=== PATIENT | female | born 1985 | race African-American/Black ===

== ENCOUNTER 2018-02-13 15:11 | Emergency (ER) | payer BC, SELFPAY ==
[2018-02-13 15:50] LABS: Urine Blood 2+ (NEG); Urine Glucose NEGATIVE (NEG); Urine Protein NEGATIVE (NEG); Urine Specific Gravity 1.025 (1.005-1.030); Urine pH 6.5 (5.0-7.0)
--- NOTE | 2018-02-13 16:25 | RAD REPORT ---
EXAM DESCRIPTION: CT - Stone Protocol - 02/13/2018 4:13 pm CLINICAL HISTORY: Abdominal pain. Right flank pain COMPARISON: None. TECHNIQUE: Computed axial tomography of the abdomen pelvis was obtained without oral or IV contrast. Lack of IV and oral contrast limits evaluation of solid organs, bowel, and vessels. Coronal reformat deepa images were obtained and reviewed. All CT scans are performed using dose optimization technique as appropriate and may include automated exposure control or mA/KV adjustment according to patient size. FINDINGS: A renal calculus is not seen. An ureteral calculus is not noted. A bladder calculus is not present. The liver, spleen, pancreas and adrenals appear grossly normal There is no evidence of diverticulitis. The appendix appears normal A tiny umbilical hernia is present. An IUD is in good position. An adnexal mass is not seen IMPRESSION: Negative for a genitourinary calculus
[2018-02-13 16:35] LABS: Absolute Lymphocytes (CBC) 4.1 K/uL (0.7-4.9); Absolute Monocytes 0.7 K/uL (0.1-1.3); Absolute Neutrophil 5.4 K/uL (1.8-8.0); Basophils % 0.2 % (0-1.3); Eosinophils % 2.5 % (0-4.4); Hematocrit 38.5 % (36.0-45.0); Lymphocytes % 39.2 % (15.3-44.8); MCH 24.1 pg (27.0-35.0); MCV 74.9 fL (80-100); MPV 8.7 fL (7.6-11.3); Monocytes % 6.5 % (3.3-12.3); RBC Red Blood Cell Count 5.14 M/uL (3.86-4.86)
[2018-02-13 16:49] LABS: ALT/SGPT 34 U/L (12-78); AST/SGOT 21 U/L (15-37); Albumin 3.4 g/dL (3.4-5.0); Alkaline Phosphatase 74 U/L (45-117); BUN Blood Urea Nitrogen 14 mg/dL (7-18); Bicarbonate 27 mmol/L (21-32); Bilirubin Direct < 0.1 mg/dL (0-0.2); Bilirubin Total 0.2 mg/dL (0.2-1.0); Glucose Level 100 mg/dL (74-106); Potassium 3.6 mmol/L (3.5-5.1); Protein, Total 7.5 g/dL (6.4-8.2); Sodium Level 141 mmol/L (136-145)
--- NOTE | 2018-02-13 16:58 | ER ---
Nurse's Notes [facility] Name: Asha Vickers Age: 32 yrs Sex: Female : 1985 Arrival Date: 02/13/2018 Time: 15:16 Bed 23 Private MD: Diagnosis: Muscle spasm Presentation: 02/13 15:16 Presenting complaint: Patient states: right flank pain that began Sunday and got worse aa5 last night. Pt denies N/V/D, denies urinary symptoms. Transition of care: patient was not received from another setting of care. Onset of symptoms was February 2018. Risk Assessment: Do you want to hurt yourself or someone else? Patient reports no desire to harm self or others. Initial Sepsis Screen: Does the patient meet any 2 criteria? No. Patient's initial sepsis screen is negative. Does the patient have a suspected source of infection? No. Patient's initial sepsis screen is negative. Care prior to arrival: None. 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 - Social history:: Smoking status: Patient/guardian denies using tobacco, Patient uses alcohol, occasionally. - Ebola Screening: : No symptoms or risks identified at this time. Screenin:25 Abuse screen: Denies threats or abuse. Nutritional screening: No deficits noted. tl3 Tuberculosis screening: No symptoms or risk factors identified. Fall Risk None identified. Assessment: 15:23 General: Appears in no apparent distress. comfortable, well groomed, well developed, tl3 well nourished, Behavior is calm, cooperative, appropriate for age. Neuro: Level of Consciousness is awake, alert, obeys commands, Oriented to person, place, time, situation, Appropriate for age. Cardiovascular: Patient's skin is warm and dry. Respiratory: Airway is patent Respiratory effort is even, unlabored, Respiratory pattern is regular, symmetrical. GI: No signs and/or symptoms were reported involving the gastrointestinal system. : No signs and/or symptoms were reported regarding the genitourinary system. Urine is clear. EENT: No signs and/or symptoms were reported regarding the EENT system. Derm: No signs and/or symptoms reported regarding the dermatologic system. Musculoskeletal: Reports pain in left low back and left mid back. 15:26 Pain: Complains of pain in right flank. tl3 17:05 Reassessment: Patient appears in no apparent distress at this time. No changes from tl3 previously documented assessment. Patient and/or family updated on plan of care and expected duration. Pain level reassessed. Patient is alert, oriented x 3, equal unlabored respirations, skin warm/dry/pink. Vital Signs: 15:20 BP 136 / 76; Pulse 78; Resp 18 S; Temp 98.2(TE); Pulse Ox 100% on R/A; Weight 132.9 kg aa5 (R); Height 5 ft. 4 in. (162.56 cm) (R); Pain 7/10; 15:20 Body Mass Index 50.29 (132.90 kg, 162.56 cm) aa5 ED Course: 15:16 Patient arrived in ED. jr8 15:16 Mike Carlton PA is PHCP. jr8 15:16 Manuel Ryder MD is Attending Physician. jr8 15:17 Triage completed. aa5 15:17 Arm band placed on. aa5 15:21 Mike Carlton PA is PHCP. jr8 15:21 Manuel Ryder MD is Attending Physician. jr8 15:23 Mercedes Worthington, SARA is Primary Nurse. tl3 15:25 Patient has correct armband on for positive identification. Pulse ox on. NIBP on. Warm tl3 blanket given. 15:25 No provider procedures requiring assistance completed. tl3 16:[address] sj 16:11 CT completed. Patient tolerated procedure well. Patient moved back from CT. mw3 16:13 CT Stone Protocol In Process Unspecified. EDMS 16:13 Initial lab(s) drawn, by me, sent to lab. Urine collected: clean catch specimen, clear. tl3 Inserted saline lock: 20 gauge in right forearm, using aseptic technique. Blood collected. 17:05 IV discontinued, intact, bleeding controlled, No redness/swelling at site. Pressure tl3 dressing applied. Administered Medications: 17:02 Drug: TORadol 30 mg Route: IVP; Site: right forearm; iw 17:04 Follow up: Response: Medication administered at discharge. tl3 Outcome: 16:57 Discharge ordered by MD. huizar 17:05 Discharged to home ambulatory. iw 17:05 Condition: good 17:05 Discharge instructions given to patient, Instructed on discharge instructions, follow up and referral plans. medication usage, Demonstrated understanding of instructions, follow-up care, medications, Prescriptions given X 3. 17:05 Discharged to tl3 17:06 Patient left the ED. iw Signatures: Dispatcher [employer] EDAshleigh Bush Irene, RN RN iw Keesha Coello RN RN aa5 Mike Carlton PA PA jr8 Mercedes Worthington RN RN tl3 Geetha Velazquez mw3 Corrections: (The following items were deleted from the chart) 15:22 15:20 Pulse 78bpm; Resp 18bpm; Spontaneous; Pulse Ox 100% RA; Temp 98.2F Temporal; aa5 aa5
--- NOTE | 2018-02-13 16:58 | EDPHYS ---
Physician Documentation [facility] Name: Asha Vickers Age: 32 yrs Sex: Female : 1985 Arrival Date: 02/13/2018 Time: 15:16 Bed 23 Private MD: ED Physician Manuel Ryder HPI: 02/13 15:52 This 32 yrs old Black Female presents to ER via Ambulatory with complaints of right jr8 sided pain. 15:52 Patient stated that she started to have pain yesterday. Worse throughout the night. jr8 While at work became so bad that she had to stop for the day. Worse with deep breath and movement . Severity of symptoms: At their worst the symptoms were moderate in the emergency department the symptoms are unchanged. The patient has not experienced similar symptoms in the past. The patient has not recently seen a physician. Denies trauma . 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 - Social history:: Smoking status: Patient/guardian denies using tobacco, Patient uses alcohol, occasionally. - Ebola Screening: : No symptoms or risks identified at this time. ROS: 15:52 Eyes: Negative for injury, pain, redness, and discharge, ENT: Negative for injury, jr8 pain, and discharge, Neck: Negative for injury, pain, and swelling, Cardiovascular: Negative for chest pain, palpitations, and edema, Respiratory: Negative for shortness of breath, cough, wheezing, and pleuritic chest pain, Abdomen/GI: Negative for abdominal pain, nausea, vomiting, diarrhea, and constipation, MS/Extremity: Negative for injury and deformity, Skin: Negative for injury, rash, and discoloration, Neuro: Negative for headache, weakness, numbness, tingling, and seizure. 15:52 Back: Positive for pain at rest, pain with movement, of the right flank. Exam: 15:52 Eyes: Pupils equal round and reactive to light, extra-ocular motions intact. Lids and jr8 lashes normal. Conjunctiva and sclera are non-icteric and not injected. Cornea within normal limits. Periorbital areas with no swelling, redness, or edema. ENT: Nares patent. No nasal discharge, no septal abnormalities noted. Tympanic membranes are normal and external auditory canals are clear. Oropharynx with no redness, swelling, or masses, exudates, or evidence of obstruction, uvula midline. Mucous membranes moist. Neck: Trachea midline, no thyromegaly or masses palpated, and no cervical lymphadenopathy. Supple, full range of motion without nuchal rigidity, or vertebral point tenderness. No Meningismus. Cardiovascular: Regular rate and rhythm with a normal S1 and S2. No gallops, murmurs, or rubs. Normal PMI, no JVD. No pulse deficits. Respiratory: Lungs have equal breath sounds bilaterally, clear to auscultation and percussion. No rales, rhonchi or wheezes noted. No increased work of breathing, no retractions or nasal flaring. Abdomen/GI: Soft, non-tender, with normal bowel sounds. No distension or tympany. No guarding or rebound. No evidence of tenderness throughout. Back: No spinal tenderness. No costovertebral tenderness. Full range of motion. Skin: Warm, dry with normal turgor. Normal color with no rashes, no lesions, and no evidence of cellulitis. MS/ Extremity: Pulses equal, no cyanosis. Neurovascular intact. Full, normal range of motion. Neuro: Awake and alert, GCS 15, oriented to person, place, time, and situation. Cranial nerves II-XII grossly intact. Motor strength 5/5 in all extremities. Sensory grossly intact. Cerebellar exam normal. Normal gait. 15:52 Chest/axilla: Palpation: tenderness, that is moderate, of the right lateral posterior chest and right lateral anterior chest. Vital Signs: 15:20 BP 136 / 76; Pulse 78; Resp 18 S; Temp 98.2(TE); Pulse Ox 100% on R/A; Weight 132.9 kg aa5 (R); Height 5 ft. 4 in. (162.56 cm) (R); Pain 7/10; 15:20 Body Mass Index 50.29 (132.90 kg, 162.56 cm) aa5 MDM: 15:22 Patient medically screened. [facility] 16:54 Data reviewed: vital signs, nurses notes, lab test result(s), radiologic studies, CT jr8 scan, and as a result, I will discharge patient. Data interpreted: Pulse oximetry: on room air is 100 %. Interpretation: normal. Counseling: I had a detailed discussion with the patient and/or guardian regarding: the historical points, exam findings, and any diagnostic results supporting the discharge/admit diagnosis, lab results, radiology results, the need for outpatient follow up, a family practitioner, to return to the emergency department if symptoms worsen or persist or if there are any questions or concerns that arise at home. 02/13 15:37 Order name: Urine Dipstick--Ancillary (enter results); Complete Time: 15:59 bd 02/13 15:37 Order name: Urine --Ancillary (enter results); Complete Time: 15:59 bd 02/13 15:40 Order name: CBC with Diff; Complete Time: 16:54 jr8 02/13 15:40 Order name: Basic Metabolic Panel; Complete Time: 16:54 jr8 02/13 15:40 Order name: LFT's; Complete Time: 16:54 jr8 02/13 15:59 Order name: CT Stone Protocol; Complete Time: 16:31 jr8 02/13 15:40 Order name: IV; Complete Time: 16:10 jr8 Administered Medications: 17:02 Drug: TORadol 30 mg Route: IVP; Site: right forearm; iw 17:04 Follow up: Response: Medication administered at discharge. tl3 Disposition: 02/14 06:53 Co-signature as Attending Physician, Manuel Ryder MD I agree with the assessment and [facility] plan of care. Disposition: 02/13/18 16:57 Discharged to Home. Impression: Muscle spasm. - Condition is Stable. - Discharge Instructions: Muscle Cramps and Spasms. - Prescriptions for Ibuprofen 800 mg Oral Tablet - take 1 tablet by ORAL route every 12 hours As needed take with food; 20 tablet. Ultracet 37.5- 325 mg Oral Tablet - take 1 tablet by ORAL route every 6 hours - for up to 5 days; do not exceed 8 tablets per day.; 30 tablet. Cyclobenzaprine 10 mg Oral Tablet - take 1 tablet by ORAL route every 8 hours As needed; 30 tablet. - Medication Reconciliation Form, Thank You Letter, Antibiotic Education, Prescription Opioid Use form. - Follow up: Private Physician; When: 2 - 3 days; Reason: Recheck today's complaints, Continuance of care, Re-evaluation by your physician. - Problem is new. - Symptoms have improved. Signatures: Dispatcher [employer] EDRI Manuel Ryder MD MD cha Williams, Irene, RN RN iw Keesha Coello RN RN aa5 Mike Carlton PA PA jr8 Mercedes Worthington RN tl3 Corrections: (The following items were deleted from the chart) 02/13 17:06 16:57 02/13/2018 16:57 Discharged to Home. Impression: Muscle spasm. Condition is iw Stable. Forms are Medication Reconciliation Form, Thank You Letter, Antibiotic Education, Prescription Opioid Use. Follow up: Private Physician; When: 2 - 3 days; Reason: Recheck today's complaints, Continuance of care, Re-evaluation by your physician. Problem is new. Symptoms have improved. jr8
[2018-02-13] MEDS ORDERED: KETOROLAC 30 MG/ML INJ ONE (17:06)
== END 2018-02-13 17:06 | disposition home or self-care (01) ==
LOC: ER 15:11
DX: M62.838 Other muscle spasm (principal); I10 Essential (primary) hypertension; R73.03 Prediabetes
CPT/HCPCS: 36415; 74176; 76377; 80048; 80076; 81003; 81025; 85025; 96374; 99284

== ENCOUNTER 2020-08-11 08:09 | Emergency (ER) | payer BC ==
[2020-08-11 08:42] LABS: Absolute Lymphocytes (CBC) 3.4 K/uL (0.7-4.9); Basophils % 0.4 % (0-1.3); Hematocrit 36.3 % (36.0-45.0); Lymphocytes % 42.5 % (15.3-44.8); MPV 8.6 fL (7.6-11.3); RBC Red Blood Cell Count 4.73 M/uL (3.86-4.86)
[2020-08-11] MEDS ORDERED: MEPERIDINE HCL 25 MG/ML SYR ONE (08:43)
[2020-08-11] MEDS ORDERED: ONDANSETRON 4 MG/2 ML VIAL ONE (08:43)
[2020-08-11 09:00] LABS: ALT/SGPT 28 U/L (12-78); AST/SGOT 37 U/L (15-37); Albumin 3.3 g/dL (3.4-5.0); Alkaline Phosphatase 80 U/L (45-117); BUN Blood Urea Nitrogen 8 mg/dL (7-18); Bicarbonate 27 mmol/L (21-32); Bilirubin Direct 0.2 mg/dL (0-0.2); Bilirubin Total 0.5 mg/dL (0.2-1.0); Glucose Level 118 mg/dL (74-106); Lipase 68 U/L (73-393); Potassium 3.2 mmol/L (3.5-5.1); Protein, Total 7.5 g/dL (6.4-8.2); Sodium Level 139 mmol/L (136-145)
[2020-08-11 09:08] LABS: Urine Blood NEGATIVE (NEG); Urine Glucose NEGATIVE (NEG); Urine Protein NEGATIVE (NEG); Urine Specific Gravity 1.025 (1.005-1.030); Urine pH 8.5 (5.0-7.0)
--- NOTE | 2020-08-11 10:02 | RAD REPORT ---
EXAM DESCRIPTION: CTAbdomen Pelvis W Contrast - 08/11/2020 9:04 am CLINICAL HISTORY: Abdominal pain. ABD PAIN COMPARISON: No comparisons TECHNIQUE: Biphasic CT imaging of the abdomen and pelvis was performed with 100 ml non-ionic IV cont rast. All CT scans are performed using dose optimization technique as appropriate and may include automated exposure control or mA/KV adjustment according to patient size. FINDINGS: The lung bases are clear.Postsurgical changes about the stomach noted. The liver, spleen, pancreas, adrenal glands and kidneys are within normal limits. No bowel obstruction, free air, free fluid or abscess. The appendix is normal. No evidence of signi ficant lymphadenopathy. No suspicious bony findings. IUD is present in the uterus. IMPRESSION: No acute intra-abdominal or pelvic finding.
[2020-08-11] MEDS ORDERED: ACETAMINOPHEN 500 MG TAB ONE (11:08)
--- NOTE | 2020-08-11 11:39 | ER ---
Nurse's Notes [facility] Name: Asha Vickers Age: 34 yrs Sex: Female : 1985 Arrival Date: 08/11/2020 Time: 08:10 Bed 19 Private MD: Zandra Abreu Diagnosis: Abdominal and pelvic pain Presentation: 08/11 08:15 Chief complaint: Patient states: lower abd pain and nausea started this morning. Denies sv v/d. Coronavirus screen: Client denies travel out of the [place] in the last 14 days. At this time, the client does not indicate any symptoms associated with coronavirus-19. The client reports previous COVID testing was negative. Date of collection: August 02, 2020. Ebola Screen: No symptoms or risks identified at this time. Risk Assessment: Do you want to hurt yourself or someone else? Patient reports no desire to harm self or others. Onset of symptoms was August 11, 2020. 08:15 Method Of Arrival: Ambulatory sv 08:15 Acuity: AGUSTIN 3 sv 08:16 Initial Sepsis Screen: Does the patient meet any 2 criteria? No. Patient's initial ph sepsis screen is negative. Does the patient have a suspected source of infection? No. Patient's initial sepsis screen is negative. Historical: - Allergies: 08:16 Morphine; sv - PMHx: 08:16 Hypertension; Pre-Diabetes; sv - PSHx: 08:16 Tonsillectomy; Gastric sleeve(March 2020); sv - Immunization history:: Adult Immunizations unknown. - Social history:: Smoking status: Patient denies any tobacco usage or history of. Screenin:15 Abuse screen: Denies threats or abuse. Denies injuries from another. Nutritional ph screening: No deficits noted. Tuberculosis screening: No symptoms or risk factors identified. Fall Risk None identified. Assessment: 08:17 General: Appears in no apparent distress. uncomfortable, well groomed, Behavior is ph calm, cooperative, appropriate for age, Denies fever. Pain: Complains of pain in suprapubic area, right lower quadrant and left lower quadrant Pain currently is 10 out of 10 on a pain scale. Neuro: Level of Consciousness is awake, alert, obeys commands, Oriented to person, place, time, situation. Cardiovascular: Capillary refill < 3 seconds in bilateral fingers Patient's skin is warm and dry. Respiratory: Airway is patent Respiratory effort is even, unlabored, Respiratory pattern is regular, symmetrical. GI: Abdomen is non-distended, Reports lower abdominal pain, nausea, Patient currently denies diarrhea, vomiting. Derm: Skin is intact, is healthy with good turgor, Skin is pink, warm \T\ dry. Musculoskeletal: Circulation, motion, and sensation intact. Range of motion: intact in all extremities. 08:57 Reassessment: Patient appears in no apparent distress at this time. Patient and/or ph family updated on plan of care and expected duration. Pain level reassessed. Patient is alert, oriented x 3, equal unlabored respirations, skin warm/dry/pink. Pt reports that pain has decreased to 6/10, also states that nausea has improved, pt taken to CT via wheelchair. 10:00 Reassessment: Patient appears in no apparent distress at this time. Patient and/or ph family updated on plan of care and expected duration. Pain level reassessed. Patient is alert, oriented x 3, equal unlabored respirations, skin warm/dry/pink. Pt reports that abdominal pain and nausea have improved, c/o headache, ERP notified, see MAR. 11:38 Reassessment: Patient appears in no apparent distress at this time. Patient and/or ph family updated on plan of care and expected duration. Pain level reassessed. Patient is alert, oriented x 3, equal unlabored respirations, skin warm/dry/pink. Patient denies pain at this time. Patient states feeling better. Vital Signs: 08:15 Weight 106.59 kg; Height 5 ft. 4 in. (162.56 cm); Pain 10/10; sv 08:16 BP 123 / 62; Pulse 90; Resp 22; Temp 97.2; Pulse Ox 100% on R/A; ph 10:12 BP 115 / 49; Pulse 79; Resp 18; Pulse Ox 99% on R/A; ph 11:39 BP 110 / 58; Pulse 76; Resp 18; Temp 97.5; Pulse Ox 99% on R/A; ph 08:15 Body Mass Index 40.34 (106.59 kg, 162.56 cm) sv ED Course: 08:10 Patient arrived in ED. am2 08:10 Zandra Abreu MD is Private Physician. am2 08:12 Diego Rios MD is Attending Physician. kdr 08:12 Jinny Blancas, RN is Primary Nurse. ph 08:15 Triage completed. sv 08:16 Arm band placed on Patient placed in an exam room, on a stretcher. sv 08:17 Patient has correct armband on for positive identification. Bed in low position. Call ph light in reach. Side rails up X 1. Pulse ox on. NIBP on. Door closed. Noise minimized. Warm blanket given. 09:04 CT Abd/Pelvis - IV Contrast Only In Process Unspecified. EDMS 10:22 Basic Metabolic Panel Sent. sv 10:22 CBC with Diff Sent. sv 10:22 Hepatic Function Sent. sv 10:22 Lipase Sent. sv 11:13 Zandra Abreu MD is Referral Physician. kdr 11:39 No provider procedures requiring assistance completed. IV discontinued, intact, ph bleeding controlled, No redness/swelling at site. Pressure dressing applied. Administered Medications: 08:30 Drug: Zofran (Ondansetron) 4 mg Route: IVP; Site: right antecubital; ph 09:00 Follow up: Response: No adverse reaction; Nausea is decreased ph 08:32 Drug: Demerol 25 mg Route: IVP; Site: right antecubital; ph 09:00 Follow up: Response: No adverse reaction; Pain is decreased ph 10:53 Drug: Tylenol 1000 mg Route: PO; ph 11:41 Follow up: Response: No adverse reaction; Pain is decreased ph Outcome: 11:13 Discharge ordered by MD. kdr 11:39 Discharged to home ambulatory. ph 11:39 Condition: good 11:39 Discharge instructions given to patient, Instructed on discharge instructions, follow up and referral plans. medication usage, Demonstrated understanding of instructions, follow-up care, medications, Prescriptions given X 3. 11:41 Patient left the ED. ph Signatures: Dispatcher [employer] Maricel Eric RN RN sv Rittger, Kevin, MD MD kdr Jinny Blancas RN RN Alannah Conde am2
--- NOTE | 2020-08-11 11:39 | EDPHYS ---
Physician Documentation [facility] Name: Asha Vickers Age: 34 yrs Sex: Female : 1985 Arrival Date: 08/11/2020 Time: 08:10 Bed 19 Private MD: Zandra Abreu ED Physician Diego Rios HPI: 08/11 08:26 This 34 yrs old Black Female presents to ER via Ambulatory with complaints of Abdominal kdr Pain. 08:26 The patient presents with abdominal pain in the lower abdomen, in the right upper kdr quadrant. Onset: The symptoms/episode began/occurred suddenly, 1 hour(s) ago. The symptoms do not radiate. Associated signs and symptoms: Pertinent positives: nausea, Pertinent negatives: blood in stools, chest pain, constipation, diarrhea, dysuria, fever, headache, hematuria, palpitations, shortness of breath, vomiting, vomiting blood. The symptoms are described as burning, crampy, intermittent, sharp, waxing/waning. Modifying factors: The symptoms are alleviated by nothing, the symptoms are aggravated by movement, pressure, touching the area. Severity of pain: At its worst the pain was moderate in the emergency department the pain is unchanged. The patient has not experienced similar symptoms in the past, The patient had gastric sleeve about six months ago and had had similar pain prior to the surgery but none since. The patient has not recently seen a physician. Historical: - Allergies: 08:16 Morphine; sv - PMHx: 08:16 Hypertension; Pre-Diabetes; sv - PSHx: 08:16 Tonsillectomy; Gastric sleeve(March 2020); sv - Immunization history:: Adult Immunizations unknown. - Social history:: Smoking status: Patient denies any tobacco usage or history of. ROS: 08:26 Constitutional: Negative for fever, chills, and weight loss, Eyes: Negative for injury, kdr pain, redness, and discharge, ENT: Negative for injury, pain, and discharge, Neck: Negative for injury, pain, and swelling, Cardiovascular: Negative for chest pain, palpitations, and edema, Respiratory: Negative for shortness of breath, cough, wheezing, and pleuritic chest pain, Back: Negative for injury and pain, : Negative for injury, bleeding, discharge, and swelling, MS/Extremity: Negative for injury and deformity, Skin: Negative for injury, rash, and discoloration, Neuro: Negative for headache, weakness, numbness, tingling, and seizure activity. Psych: Negative for depression, anxiety, suicide ideation, homicidal ideation, and hallucinations, Allergy/Immunology: Negative for hives, rash, and allergies, Endocrine: Negative for neck swelling, polydipsia, polyuria, polyphagia, and marked weight changes, Hematologic/Lymphatic: Negative for swollen nodes, abnormal bleeding, and unusual bruising. 08:26 Abdomen/GI: Positive for abdominal pain, nausea, Negative for vomiting, diarrhea, constipation, abdominal cramps, abdominal distension, anorexia, dysphagia, hematemesis, black/tarry stool, rectal pain, rectal bleeding, bowel incontinence, last BM was two days ago. Exam: 08:26 Constitutional: This is a well developed, well nourished patient who is awake, alert, kdr and in no acute distress. Head/Face: Normocephalic, atraumatic. Eyes: Pupils equal round and reactive to light, extra-ocular motions intact. Lids and lashes normal. Conjunctiva and sclera are non-icteric and not injected. Cornea within normal limits. Periorbital areas with no swelling, redness, or edema. Neck: Trachea midline, no thyromegaly or masses palpated, and no cervical lymphadenopathy. Supple, full range of motion without nuchal rigidity, or vertebral point tenderness. No Meningismus. Chest/axilla: Normal chest wall appearance and motion. Nontender with no deformity. No lesions are appreciated. Cardiovascular: Regular rate and rhythm with a normal S1 and S2. No gallops, murmurs, or rubs. Normal PMI, no JVD. No pulse deficits. Respiratory: Lungs have equal breath sounds bilaterally, clear to auscultation and percussion. No rales, rhonchi or wheezes noted. No increased work of breathing, no retractions or nasal flaring. Back: No spinal tenderness. No costovertebral tenderness. Full range of motion. Skin: Warm, dry with normal turgor. Normal color with no rashes, no lesions, and no evidence of cellulitis. MS/ Extremity: Pulses equal, no cyanosis. Neurovascular intact. Full, normal range of motion. Neuro: Awake and alert, GCS 15, oriented to person, place, time, and situation. Cranial nerves II-XII grossly intact. Motor strength 5/5 in all extremities. Sensory grossly intact. Cerebellar exam normal. Normal gait. Psych: Awake, alert, with orientation to person, place and time. Behavior, mood, and affect are within normal limits. 08:26 Abdomen/GI: Inspection: abdomen appears normal, obese Bowel sounds: active, diminished, in all quadrants, Palpation: soft, mild abdominal tenderness, in the suprapubic area and right lower quadrant, mass, is not appreciated, rebound tenderness, is not appreciated, voluntary guarding, is not appreciated. Vital Signs: 08:15 Weight 106.59 kg; Height 5 ft. 4 in. (162.56 cm); Pain 10/10; sv 08:16 BP 123 / 62; Pulse 90; Resp 22; Temp 97.2; Pulse Ox 100% on R/A; ph 10:12 BP 115 / 49; Pulse 79; Resp 18; Pulse Ox 99% on R/A; ph 11:39 BP 110 / 58; Pulse 76; Resp 18; Temp 97.5; Pulse Ox 99% on R/A; ph 08:15 Body Mass Index 40.34 (106.59 kg, 162.56 cm) sv MDM: 11:13 Patient medically screened. kdr 16:33 Data reviewed: vital signs, nurses notes, lab test result(s), radiologic studies. kdr Counseling: I had a detailed discussion with the patient and/or guardian regarding: the historical points, exam findings, and any diagnostic results supporting the discharge/admit diagnosis, lab results, radiology results, the need for outpatient follow up. 08/11 08:24 Order name: Basic Metabolic Panel kdr 08/11 08:24 Order name: CBC with Diff kdr 08/11 08:24 Order name: Hepatic Function kdr 08/11 08:24 Order name: Lipase kdr 08/11 08:24 Order name: Basic Metabolic Panel; Complete Time: 10:27 EDMS 08/11 08:24 Order name: Liver (Hepatic) Function; Complete Time: 10:27 EDMS 08/11 08:24 Order name: CT Abd/Pelvis - IV Contrast Only; Complete Time: 10:27 kdr 08/11 08:24 Order name: CBC with Automated Diff; Complete Time: 10:27 EDMS 08/11 08:24 Order name: Lipase; Complete Time: 10:27 EDMS 08/11 08:51 Order name: Urine Dipstick--Ancillary (enter results); Complete Time: 10:27 em1 08/11 08:51 Order name: Urine --Ancillary (enter results); Complete Time: 10:27 em1 08/11 08:24 Order name: IV Saline Lock; Complete Time: 08:25 kdr 08/11 08:24 Order name: Labs collected and sent; Complete Time: 08:25 kdr 08/11 08:24 Order name: Urine Dipstick-Ancillary (obtain specimen); Complete Time: 08:49 kdr 08/11 08:24 Order name: Urine Test (obtain specimen); Complete Time: 08:49 kdr Administered Medications: 08:30 Drug: Zofran (Ondansetron) 4 mg Route: IVP; Site: right antecubital; ph 09:00 Follow up: Response: No adverse reaction; Nausea is decreased ph 08:32 Drug: Demerol 25 mg Route: IVP; Site: right antecubital; ph 09:00 Follow up: Response: No adverse reaction; Pain is decreased ph 10:53 Drug: Tylenol 1000 mg Route: PO; ph 11:41 Follow up: Response: No adverse reaction; Pain is decreased ph Disposition: 08/11/20 11:13 Discharged to Home. Impression: Abdominal and pelvic pain. - Condition is Stable. - Discharge Instructions: Abdominal Pain, Adult, [id number]. - Prescriptions for Pepcid 20 mg Oral Tablet - take 1 tablet by ORAL route every 12 hours for 5 days; 10 tablet. Zofran 4 mg Oral Tablet - take 1 tablet by ORAL route every 4-6 hours As needed; 12 tablet. Tramadol 50 mg Oral Tablet - take 1 tablet by ORAL route every 8 hours As needed as needed; 12 tablet. - Medication Reconciliation Form, Thank You Letter, Antibiotic Education, Prescription Opioid Use form. - Follow up: Zandra Abreu MD; When: 2 - 3 days; Reason: If symptoms return, Further diagnostic work-up, Recheck today's complaints, Continuance of care, Re-evaluation by your physician. - Problem is new. - Symptoms have improved. Signatures: Dispatcher [employer] Maricel Eric RN RN sv Rittger, Kevin, MD MD [facility] Blancas, Jinny, RN RN ph Corrections: (The following items were deleted from the chart) 11:41 11:13 08/11/2020 11:13 Discharged to Home. Impression: Abdominal and pelvic pain. ph Condition is Stable. Forms are Medication Reconciliation Form, Thank You Letter, Antibiotic Education, Prescription Opioid Use. Follow up: Zandra Abreu; When: 2 - 3 days; Reason: If symptoms return, Further diagnostic work-up, Recheck today's complaints, Continuance of care, Re-evaluation by your physician. Problem is new. Symptoms have improved. kdr
[2020-08-12 10:08] VITALS: BP 110/58; TEMP 97.5; O2SAT 99
== END 2020-08-11 11:41 | disposition home or self-care (01) ==
LOC: ER 08:09
DX: R10.2 Pelvic and perineal pain (principal); I10 Essential (primary) hypertension; R73.03 Prediabetes; Z98.84 Bariatric surgery status; Z88.5 Allergy status to narcotic agent
CPT/HCPCS: 85025; 80048; 36415; 81025; 82565; 80076; 81003; 83690; 74177; 96375; 96374; 99284; Q9967; J2175; J2405